=== PATIENT | female | born 1945 | race Caucasian/White ===

== ENCOUNTER 2025-03-26 14:04 | Emergency (ER) | payer MEDICARE, SELFPAY ==
[2025-03-26 14:11] VITALS: BP 153/81
--- NOTE | 2025-03-26 15:04 | ED.MUSCINJ ---
HPI-Injury
General
Chief Complaint: Fall
Source: patient and family (son at bedside)
Exam Limitations: none
Time Seen by Provider: 03/26/25 14:16
Nursing documentation reviewed up to this point in time: agreed with
History of Present Illness-Injury
Initial Injury comments:
79-year-old female was on the third floor here at to visit her , she walked through the automatic doors that were open, they started to close and her right foot got caught and she fell forward onto her right elbow and knees. She has a
scrape on her right elbow and a scrape on her left knee. She is unsure of her last tetanus immunization. She denies hitting her head. She states she has pain when attempting to weight-bear on the left leg she denies neck pain. She is not
anticoagulated.
Past History
Past History
ED Past Medical History: HTN and Hypercholesterolemia
ED Past Surgical History: Orthopedic
Social History
Tobacco: Non-smoker
Alcohol: None
Personal:
Living: with family
Review of Systems
Review of Systems
Allergies reviewed?: Yes
All Other Systems: ROS reviewed and negative except as documented in HPI and ROS
Respiratory: Denies trouble breathing
Cardiac: Denies chest pain or syncope
ABD/GI: Denies abdominal pain or nausea
: Denies incontinence
Musculoskeletal: Reports other (discomfort right upper arm, left knee); Denies edema, neck pain or back pain
Phy Exam
Physical Exam
Physical Exam:
GENERAL: No acute distress. A&Ox3.
CONSTITUTIONAL: Afebrile.
EYES: clear, conjunctivae normal
ENMT: moist mucus membranes, Pharynx nl
RESPIRATORY: Regular respirations, nonlabored, lungs clear.
CARDIOVASCULAR: Regular rate and rhythm, no murmurs, no rubs.
GI: Soft, nontender, normal BS
MUSCULOSKELETAL: No spinal bony tenderness. Pelvis NT. Good ROM both hips without discomfort. RUE with full ROM no significant bony tenderness. Left knee sore with flexion. No significant bony tenderness, distal n/v intact. Moves with ease. Well
perfused.
SKIN: Warm, dry, pink
PSYCH: Normal mood and affect. Well kept, interactive and appropriate
NEUROLOGIC: Awake, alert and oriented. No focal neurological deficits
Injury Course
Orders/Labs/Results
Orders:
Orders
03/26/25 14:26
CR Humerus - Right Min 2 View* Urgent
Comment:
Reason For Exam: fall
CR Knee - Left 4 Or More View* Urgent
Comment:
Reason For Exam: fall
03/26/25 14:59
Tetanus/Diphth/Acelpertussis [Adacel] 0.5 ml IM .ONCE ONE
03/26/25 16:35
Carlos Enrique Wrap Left-Treatment ONCE
03/26/25 17:03
Tetanus/Diphth/Acelpertussis [Adacel] 0.5 ml .ROUTE .STK-MED ONE
03/26/25 17:08
Knee Immobilizer Left-Treatmen ONCE
MDM/Problems Addressed
MDM/Problems Addressed:
79-year-old female was on the third floor here at to visit her , she walked through the automatic doors that were open, they started to close and her right foot got caught and she fell forward onto her right elbow and knees. She has a
scrape on her right elbow and a scrape on her left knee. She is unsure of her last tetanus immunization. She denies hitting her head. She states she has pain when attempting to weight-bear on the left leg she denies neck pain. She is not
anticoagulated.
Scrape on right elbow and left knee cleansed, antibiotic ointment and dressing applied
Tdap updated
4:30 PM:
X-ray left knee initially read by this examiner: No acute bony abnormality, minimal suprapatellar effusion. Radiology report: IMPRESSION: Vertical lucency projecting over the lateral aspect of the distal left femur, which likely represents a
nondisplaced fracture, probably incomplete with no evidence for cortical extension.
Knee immobilizer applied, pt has walker at home. Son will stay with her and f/u with her own orthopedic doctor.
X-ray left humerus initially read by this examiner no bony abnormality
*Pulse Oximetry
SaO2: 96
Oxygen Mode of Delivery: Room air
Patient hypoxic: not evaluated
*Critical Care Note
Total Time (30-74mins, 75-104mins- exclusive of procedures): Not Applicable
ED Attending Note
-
Portions of this chart may have been created with voice recognition software.� Occasional wrong word or��sound alike� substitutions may have occurred due to the inherent limitations of voice recognition software.
Discharge Plan
Departure
Patient Disposition: Home (Routine Discharge)
Date of Disposition: 03/26/25
Time of Disposition: 17:08
Patient with high blood pressure during this ER visit?: No
Condition: Good
Discharge Problem:
Fall from slip, trip, or stumble, Abrasion of right elbow, Abrasion of left knee, Soft tissue injury of left knee
Instructions: Skin Abrasions (DC)
Referrals:
Your orthopedic doctor [Other]
John Gregory MD [Active, Orthopedics] - Call in 1-3 days for appt
Activity Restrictions/Additional Instructions:
As we discussed, there is a questionable fracture, wear the knee immobilizer at all times when up and around until further instructed by the orthopedic doctor.
Use your walker at all times when up and around.
Tylenol or Aleve as needed for pain
You may open the knee immobilizer when you are resting to apply cold compress 20 minutes off and on is much as you can today and tomorrow.
Call your orthopedic doctor or the orthopedic doctor I recommended tomorrow and make next available appointment.
If your knee is not feeling better within the next week you may need further imaging
Discharge Date and Time
Print Language: BURUN[place]
[2025-03-26 15:31] VITALS: BMI 34.5
[2025-03-26] MEDS: ADACEL 0.5 ML IM (17:06)
[2025-03-26 17:08] VITALS: BP 124/75
== END 2025-03-26 17:30 | disposition home or self-care (01) ==
LOC: EMR 14:04
PROVIDERS: EMERGENCY PHYSICIAN Emergency Medicine; FAMILY PHYSICIAN Family Medicine
DX: S50.311A Abrasion of right elbow, initial encounter (principal); S80.212A Abrasion, left knee, initial encounter; S89.82XA Other specified injuries of left lower leg, initial encounter; W01.0XXA Fall on same level from slipping, tripping and stumbling without subsequent striking against object, initial encounter; Y93.01 Activity, walking, marching and hiking; Y92.232 Corridor of hospital as the place of occurrence of the external cause; E78.00 Pure hypercholesterolemia, unspecified; I10 Essential (primary) hypertension; Z23 Encounter for immunization
CPT/HCPCS: 90471; 29505; 99284; 73060; 73564; 90715